=== PATIENT | male | born 1950 | race Caucasian/White ===

== ENCOUNTER 2018-05-02 20:42 | Emergency (ER) | payer MEDICARE ==
[2018-05-02 20:48] VITALS: TEMP 97.9
--- NOTE | 2018-05-02 21:46 | ED ---
General Adult HPI - General Stated complaint: unable to urinate and have a BM Time Seen by Provider: 05/02/18 21:00 Source: family Mode of arrival: ambulatory Limitations: no limitations - History of Present Illness Initial comments: Arturo is a pleasant 67yo male who presents to the ED today for evaluation of constipation and inability to urinate. Patient states that he had bilateral inguinal hernia repair on Saturday 04/29 she reports that postoperatively he was unable to urinate was discharged home with Dumont catheter. Today he followed up with his primary care physician has Dumont catheter removed. Patient reports that since his Dumont catheter was removed at 1:30 he's been unable to urinate. In addition the patient states that he has not had a bowel movement since April 28. Patient reports that he did take Byers on the night of surgery but has not been taking any narcotic pain medication since that time. He reports today's been drinking fluids and taking prunes. This afternoon he drink milk of magnesia and attempted placement of a glycerin suppository. He reports that when he placed glycerin suppository he could feel large firm stool in his rectum but was unable to have a bowel movement. - Related Data Home Medications Medication Instructions Recorded Confirmed Glycerin Adult Suppository 1 supp RECTAL ONCE 05/02/18 05/02/18 Magnesium Hydroxide [Milk of 4,800 mg PO ONCE 05/02/18 05/02/18 Magnesia] Ranitidine HCl [Zantac] 150 mg PO HS 05/02/18 05/02/18 Tamsulosin HCl [Flomax] 0.4 mg PO HS 05/02/18 05/02/18 Allergies Allergy/AdvReac Type Severity Reaction Status Date / Time Penicillins Allergy Unknown Verified 05/02/18 21:02 Review of Systems ROS Statement: Those systems with pertinent positive or pertinent negative responses have been documented in the HPI. ROS Other: All systems not noted in ROS Statement are negative. Past Medical History Past Medical History: GERD/Reflux History of Any Multi-Drug Resistant Organisms: None Reported Past Surgical History: Hernia Repair, Orthopedic Surgery Past Psychological History: No Psychological Hx Reported Smoking Status: Never smoker Past Alcohol Use History: None Reported Past Drug Use History: None Reported General Exam - General Exam Comments Initial Comments: Physical Exam GENERAL: Patient is well-developed and well-nourished. Patient is nontoxic and well-hydrated and is in no distress. HENT: Normocephalic, Atraumatic. EYES: PERRL, EOMI PULMONARY: Unlabored respirations. No audible rales rhonchi or wheezing was noted. CARDIOVASCULAR: There is a regular rate and rhythm without any murmurs gallops or rubs. ABDOMEN: Soft and nontender with normal bowel sounds. SKIN: Skin is clear with no lesions or rashes and otherwise unremarkable. : Normal external genitalia Normal rectal exam, firm stool ball in the rectal vault was evacuated manual disimpaction NEUROLOGIC: Patient is alert and oriented x3. Moving all extremities spontaneously MUSCULOSKELETAL: Normal extremities with adequate strength and full range of motion. No lower extremity swelling or edema. No calf tenderness. PSYCHIATRIC: Normal psychiatric evaluation. Limitations: no limitations Limitations: no limitations Course Vital Signs 05/02/18 20:45 Temperature 97.9 F Pulse Rate 96 Respiratory 18 Rate Blood Pressure 120/81 O2 Sat by Pulse 97 Oximetry Medical Decision Making - Medical Decision Making Patient was seen and evaluated, history was obtained from the patient and at bedside History and physical exam are concerning for acute urinary retention possibly secondary to severe constipation Rectal disimpaction was performed, soapsuds enema was placed, patient had only minimal stool output after enema, complained again of worsening lower abdominal pressure A milk and molasses enema was attempted however patient had no stool output with this Patient was again digitally disimpacted with a large amount of stool removed for rectal vault. Patient was then able to have a bowel movement and reported significant improvement in his discomfort. Patient able to urinate comfortably. At this time patient comfortable for plan for discharge home. Disposition Clinical Impression: Impaction of the bowels Disposition: HOME SELF-CARE Instructions: Constipation (DC) Is patient prescribed a controlled substance at d/c from ED?: No Referrals: Jacob Huff MD [Primary Care Provider] - 1-2 days
[2018-05-02 23:37] VITALS: BP 109/81; PULSE 87; RESP 16
== END 2018-05-02 23:37 | disposition home or self-care (01) ==
LOC: EC 20:42
DX: K56.49 Other impaction of intestine (principal); K21.9 Gastro-esophageal reflux disease without esophagitis; R33.9 Retention of urine, unspecified; Z98.890 Other specified postprocedural states; Z79.899 Other long term (current) drug therapy; Z88.0 Allergy status to penicillin
CPT/HCPCS: 99283

== ENCOUNTER → 2021-02-17 | Outpatient (CLI) | payer MEDICARE ==
--- NOTE | 2021-02-18 10:23 | ECHOF ---
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 MEASUREMENTS -------- HEIGHT: 175.3 cm WEIGHT: 82.1 kg BP: RVIDd: 3.3 cm (< 3.3) IVSd: 1.1 cm (0.6 - 1.1) LVIDd: 4.0 cm (3.9 - 5.3) LVPWd: 1.3 cm (0.6 - 1.1) IVSs: 1.9 cm LVIDs: 2.3 cm LVPWs: 2.0 cm LAESV Index (A-L): 30.77 ml/m Ao Diam: 3.8 cm (2.0 - 3.7) AV Cusp: 1.2 cm (1.5 - 2.6) LA Diam: 3.2 cm (2.7 - 3.8) MV EXCURSION: 14.577 mm (> 18.000) MV EF SLOPE: 133 mm/s (70 - 150) EPSS: 1.5 cm MV E Abhishek: 1.04 m/s MV DecT: 267 ms MV A Abhishek: 1.03 m/s MV E/A Ratio: 1.01 AV maxP.13 mmHg AV meanP.90 mmHg AR PHT: 587 ms RAP: 5.00 mmHg RVSP: 15.06 mmHg FINDINGS -------- This was a technically good study. The left ventricular size is normal. There is mild concentric left ventricular hypertrophy. Overa ll left ventricular systolic function is normal with, an EF between 55 - 60 %. Normal LAP Grade 1 D iastolic Dysfunction. The right ventricle is mildly enlarged. LA is midly dilated 29-33ml/m2. The right atrial size is normal. Aortic valve is trileaflet and is moderately thickened. There is mild aortic regurgitation. There is severe aortic stenosis present. Peak/mean gradient across the Aortic Valve is 59.13mmHg / 35.90 mmHg. AOV is possible Bicuspid. The mitral valve is normal. The mitral valve leaflets are mildly thickened. Mild mitral regurgita tion is present. The tricuspid valve appears structurally normal. Mild tricuspid regurgitation present. Right vent ricular systolic pressure is normal at < 35 mmHg. There is no pulmonic regurgitation present. The aortic root size is normal. Normal inferior vena cava with normal inspiratory collapse consistent with estimated right atrial pre ssure of 5 mmHg. There is no pericardial effusion. CONCLUSIONS -------- 1. The left ventricular size is normal. 2. There is mild concentric left ventricular hypertrophy. 3. Overall left ventricular systolic function is normal with, an EF between 55 - 60 %. 4. Normal LAP Grade 1 Diastolic Dysfunction. 5. The right ventricle is mildly enlarged. 6. LA is midly dilated 29-33ml/m2. 7. Aortic valve is trileaflet and is moderately thickened. 8. There is mild aortic regurgitation. 9. There is severe aortic stenosis present. 10. Peak/mean gradient across the Aortic Valve is 59.13mmHg / 35.90mmHg. 11. AOV is possible Bicuspid. 12. The mitral valve leaflets are mildly thickened. 13. Mild mitral regurgitation is present. 14. Mild tricuspid regurgitation present. 15. There is no pericardial effusion. SUBSTATION DESIGN DRAFTSPERSON: Sapna Guerrero RDCS
== END | disposition home or self-care (01) ==
LOC: RADECHMAIN 11:30
PROVIDERS: ATTEND Family Medicine
DX: I35.0 Nonrheumatic aortic (valve) stenosis (principal)
CPT/HCPCS: 93306